=== PATIENT | male | born 1995 | race African-American/Black ===

== ENCOUNTER 2016-05-02 10:36 | Emergency (ER) | payer SELFPAY ==
--- NOTE | 2016-05-02 10:55 | ER Document Report ---
ED Medical Screen (RME) - General Chief Complaint: Testicular Swelling Stated Complaint: TESTICLE SWELLING Time seen by provider: 10:53 Mode of Arrival: Ambulatory Information source: Patient Notes: 21 yo male presents to ed for left testicle swelling for 3 days TRAVEL OUTSIDE OF THE [place] IN LAST 30 DAYS: No - HPI Onset: Other - 3days Onset/Duration: Gradual Quality of pain: Sharp Severity: Moderate Pain Level: 3 Associated Symptoms: Other - left testicle Exacerbated by: Denies Relieved by: Denies Similar symptoms previously: Yes Recently seen / treated by doctor: No - Related Data Smoking: Cigarettes, Other - ppd Frequency of alcohol use: None Drug Abuse: None Allergies/Adverse Reactions: No Known Allergies Allergy (Verified 10/06/15 16:29) Past Medical History - Immunizations Immunizations up to date: Yes Hx Diphtheria, Pertussis, Tetanus Vaccination: No Physical Exam - Vital signs Vitals: Temp Pulse Resp BP Pulse Ox 98.0 F 78 16 147/70 H 100 05/02/16 10:46 05/02/16 10:46 05/02/16 10:46 05/02/16 10:46 05/02/16 10:46 Course - Vital Signs Vital signs: Temp Pulse Resp BP Pulse Ox 98.0 F 78 16 147/70 H 100 05/02/16 10:46 05/02/16 10:46 05/02/16 10:46 05/02/16 10:46 05/02/16 10:46
[2016-05-02] MEDS ORDERED: AZITHROMYCIN 250 MG TABLET PO ONE (11:10)
[2016-05-02] MEDS ORDERED: LIDOCAINE 1% INJ-PF (10 MG/ML) 30 ML SDV INFIL ONE (11:11)
[2016-05-02] MEDS ORDERED: CEFTRIAXONE INJ 250 MG VIAL IM ONE (11:11)
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
[2016-05-02 12:50] LABS: APPEARANCE,URINE TURBID; BILIRUBIN,URINE NEGATIVE (NEGATIVE); GLUCOSE, URINE 50 mg/dL (NEGATIVE); KETONES,URINE NEGATIVE (NEGATIVE); LEUKOCYTE ESTERASE,URINE TRACE (NEGATIVE); NITRITE,URINE NEGATIVE (NEGATIVE); PROTEIN,URINE NEGATIVE (NEGATIVE); UROBILINOGEN,URINE NEGATIVE mg/dL (<2.0)
[2016-05-02 13:19] VITALS: BP 137/79
[2016-05-02 14:15] LABS: CHLAM PCR NOT DETECTED (NOT DETECT)
== END 2016-05-02 13:18 | disposition home or self-care (01) ==
LOC: ER 10:36
DX: N50.89 Other specified disorders of the male genital organs (principal); F17.200 Nicotine dependence, unspecified, uncomplicated
CPT/HCPCS: 99284; 96372; 81001; 87491; 87591; 76870; J3490; J0696

== ENCOUNTER 2018-11-28 19:36 | Emergency (ER) | payer SELFPAY ==
[2018-11-28 19:45] VITALS: BP 129/66
[2018-11-28] MEDS ORDERED: IBUPROFEN 800 MG TABLET PO ONE (19:48)
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
--- NOTE | 2018-11-28 20:31 | RADIOLOGY REPORT (SQ) ---
EXAM DESCRIPTION: Right hand [facility]Lex: XR HAND 3 OR MORE VIEWS Views: 3 CLINICAL HISTORY: 23 years Male, Right hand pain s/p injury COMPARISON: None. FINDINGS: There is acute fracture of the lateral dorsal corner of the hamate, with partial dorsal subluxation of the proximal head of the 5th metacarpal. No additional fractures. No hyperdense foreign bodies. IMPRESSION: 1. Acute hamate fracture with partial dislocation of the proximal head of the 5th metacarpal
[2018-11-28] MEDS ORDERED: HYDROMORPHONE HCL INJ/PF 2 MG/ML AMPULE ONE (20:54)
== END 2018-11-28 20:52 | disposition home or self-care (01) ==
LOC: ER 19:36
PROC: 2W3CX1Z Immobilization of Right Lower Arm using Splint (ICD-10-PCS; principal; 2018-11-28)
DX: S62.396A Other fracture of fifth metacarpal bone, right hand, initial encounter for closed fracture (principal); M79.641 Pain in right hand; W18.09XA Striking against other object with subsequent fall, initial encounter; F17.200 Nicotine dependence, unspecified, uncomplicated
CPT/HCPCS: 99283

== ENCOUNTER 2018-12-02 19:37 | Emergency (ER) | payer SELFPAY ==
[2018-12-02 19:48] VITALS: BP 161/93
--- NOTE | 2018-12-02 20:30 | ER Document Report ---
HPI - HPI Time Seen by Provider: 12/02/18 20:21 Pain Level: 4 Notes: Patient is a 23-year-old male who presents requesting another splint for hamate fracture with partial dislocation of the proximal head of the fifth metacarpal to his right hand 4 days ago. Patient was evaluated by myself at that time and we placed him in a volar splint. Patient states that the splint got wet and he has been working since then. He has not called orthopedics. Patient is also requesting some more medicine for his pain. Denies drug allergies. No other concerns or complaints. No new injury. Denies any headache, fever, URI, sore throat, chest pain, palpitations, syncope, cough, shortness of breath, wheeze, dyspnea, abdominal pain, nausea/vomiting/diarrhea, urinary retention, dysuria, hematuria, numbness/tingling, or rash. - ROS Systems Reviewed and Negative: Yes All other systems reviewed and negative Past Medical History - Social History Smoking Status: Unknown if Ever Smoked Family History: Reviewed & Not Pertinent Renal/ Medical History: Denies: Hx Peritoneal Dialysis - Immunizations Immunizations up to date: Yes Hx Diphtheria, Pertussis, Tetanus Vaccination: No Vertical Provider Document - CONSTITUTIONAL Agree With Documented VS: Yes Notes: PHYSICAL EXAMINATION: GENERAL: Well-appearing, well-nourished and in no acute distress. HEAD: Atraumatic, normocephalic. NECK: Normal range of motion, supple without lymphadenopathy. No midline tenderness. LUNGS: Breath sounds clear to auscultation bilaterally and equal. No wheezes rales or rhonchi. HEART: Regular rate and rhythm without murmurs, rubs, gallops. Musculoskeletal: Rt hand/wrist: There is swelling remaining to the posterior medial hand near the fifth metacarpal proximally. No erythema, warmth, ecchymosis. N/V intact distal. FROM to passive/active at the wrist. 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 No scaphoid tenderness. Continued bony tenderness to palpation of the proximal fifth metacarpal area. Extremities: No cyanosis, clubbing, or edema b/l. Peripheral pulses 2+. Capillary refill less than 3 seconds. NEUROLOGICAL: Normal speech, normal gait. Normal sensory, motor exams otherwise unremarkable PSYCH: Normal mood, normal affect. SKIN: see above. No rash - INFECTION CONTROL TRAVEL OUTSIDE OF THE [place] IN LAST 30 DAYS: No Course - Re-evaluation Re-evalutation: 12/02/18 20:27 Patient is an afebrile, well-hydrated, 23-year-old male who presents with continued hamate fracture and partial dislocation of the proximal head of the fifth metacarpal of the right hand from an injury that occurred 4 days ago. Vitals are acceptable without significant tachycardia, tachypnea, or hypoxia. PE is otherwise unremarkable. Patient has not called orthopedics. Reviewed with patient that he needs to call orthopedics tomorrow as it is very important as he can lose function in that hand over time. New volar splint placed today. I will send him home with one last prescription for pain medicine. Reviewed with patient that I will not be giving him any other prescriptions for pain and he needs to be seen by the specialist. Patient is otherwise nontoxic-appearing and is tolerating p.o. without difficulty. No further work-up warranted. Patient to call orthopedics tomorrow to schedule an appointment for further evaluation and management. Return to the ED with any other worsening/concerning symptoms. Patient is in agreement. - Vital Signs Vital signs: Temp Pulse Resp BP Pulse Ox 98.9 F 73 14 161/93 H 99 12/02/18 19:47 12/02/18 19:47 12/02/18 19:47 12/02/18 19:47 12/02/18 19:47 Procedures - Immobilization Right Hand Pre-Proc Neuro Vasc Exam: Normal Immobilizer type: Volar splint Performed by: PCT Post-Proc Neuro Vasc Exam: Normal, Unchanged from pre-exam Discharge - Discharge Clinical Impression: Fracture of fifth metacarpal bone of right hand Qualifiers: Encounter type: subsequent encounter Fracture type: closed Metacarpal location: base Fracture alignment: displaced Fracture healing: with routine healing Qualified Code(s): S62.316D - Displaced fracture of base of fifth metacarpal bone, right hand, subsequent encounter for fracture with routine healing Fracture of hamate of right wrist Qualifiers: Encounter type: initial encounter Hamate bone location: unspecified portion of hamate Fracture type: closed Fracture alignment: nondisplaced Qualified Code(s): S62.144A - Nondisplaced fracture of body of hamate [unciform] bone, right wrist, initial encounter for closed fracture Condition: Stable Disposition: HOME, SELF-CARE Additional Instructions: Rest, Ice, Compression, Elevation Use splint as directed Tylenol/ibuprofen as needed F/u with your PCP in 3-5 days for a recheck Call orthopedics tomorrow to schedule an appointment for further evaluation and management Return to the ED with any worsening symptoms and/or development of fever, headache, chest pain, palpitations, syncope, shortness of breath, trouble breathing, abdominal pain, n/v/d, muscle weakness/paralysis, numbness/tingling, swelling, redness, or other worsening symptoms that are concerning to you. Prescriptions: Tramadol HCl [Ultram 50 mg Tablet] 50 mg PO Q4HP PRN #12 tab PRN Reason: Forms: Elevated Blood Pressure Referrals: AVTAR CARRERA DO [ACTIVE STAFF] - Follow up in 3-5 days
== END 2018-12-02 20:47 | disposition home or self-care (01) ==
LOC: ER 19:37
DX: S62.316D Displaced fracture of base of fifth metacarpal bone, right hand, subsequent encounter for fracture with routine healing (principal); S62.144D Nondisplaced fracture of body of hamate [unciform] bone, right wrist, subsequent encounter for fracture with routine healing; X58.XXXD Exposure to other specified factors, subsequent encounter

== ENCOUNTER 2019-05-08 13:01 | Emergency (ER) | payer SELFPAY ==
[2019-05-08] MEDS ORDERED: ONDANSETRON HCL INJ/PF 4 MG/2 ML SDV IV ONE (13:15)
[2019-05-08] MEDS ORDERED: NORMAL SALINE 1000 ML 1,000 ML IV ONE ×2 (13:15→15:44)
--- NOTE | 2019-05-08 13:16 | ER Document Report ---
ED Medical Screen (RME) - General Chief Complaint: Vomiting Stated Complaint: VOMITING/STOMACHE CRAMPS Time Seen by Provider: 05/08/19 13:12 Mode of Arrival: Ambulatory Information source: Patient Notes: Otherwise healthy 24-year-old male presents emergency department chief complaint of nausea, vomiting and diarrhea that began yesterday. Patient also reports body aches and chills. Unsure if he is having any fevers. He denies any sick contacts at home but reports some people at work have had similar symptoms. Denies any abdominal pain but reports intermittent abdominal cramping. Exam: Patient appears well, nontoxic, no acute distress noted. Abdomen soft nontender. I have greeted and performed a rapid initial assessment of this patient. A comprehensive ED assessment and evaluation of the patient, analysis of test results and completion of the medical decision making process will be conducted by additional ED providers. I have specifically instructed the patient or family members with the patient to immediately return to any nursing staff should anything change in the patient's condition or with their chief complaint. TRAVEL OUTSIDE OF THE [place] IN LAST 30 DAYS: No - Related Data Allergies/Adverse Reactions: No Known Allergies Allergy (Verified 05/08/19 13:11) Past Medical History Renal/ Medical History: Denies: Hx Peritoneal Dialysis - Immunizations Immunizations up to date: Yes Hx Diphtheria, Pertussis, Tetanus Vaccination: No
[2019-05-08] MEDS ORDERED: DICYCLOMINE HCL INJ 20 MG/2 ML AMPULE IM ONE (14:03)
[2019-05-08 14:06] LABS: ABSOLUTE LYMPHOCYTES (AUTO) 0.9 10^3/uL (0.5-4.7); ABSOLUTE MONOCYTES (AUTO) 0.8 10^3/uL (0.1-1.4); ABSOLUTE NEUT (AUTO) 5.7 10^3/uL (1.7-8.2); BASOPHILS % (AUTO) 0.4 % (0-2); EOSINOPHILS % (AUTO) 0.5 % (0-6); HEMATOCRIT 45.8 % (37.9-51.0); HEMOGLOBIN 16.2 g/dL (13.5-17.0); LYMPHOCYTES % (AUTO) 11.8 % (13-45); MEAN CORPUSCULAR HEMOGLOBIN 30.5 pg (27.0-33.4); MEAN CORPUSCULAR HGB CONC 35.5 g/dL (32.0-36.0); MEAN CORPUSCULAR VOLUME 86 fl (80-97); MONOCYTES % (AUTO) 11.1 % (3-13); PLATELET COUNT 213 10^3/uL (150-450); RED BLOOD COUNT 5.33 10^6/uL (4.35-5.55); RED CELL DISTRIBUTION WIDTH 14.5 % (11.5-14.0); SEGMENTED NEUTROPHILS % (AUTO) 76.2 % (42-78); TOTAL CELLS COUNTED % (AUTO) 100 %; WHITE BLOOD COUNT 7.4 10^3/uL (4.0-10.5)
[2019-05-08 14:21] LABS: ALBUMIN 4.7 g/dL (3.5-5.0); ALKALINE PHOSPHATASE 98 U/L (38-126); ANION GAP 13 (5-19); ASPARTATE AMINO TRANSFERASE 23 U/L (17-59); BILIRUBIN,DIRECT 0.3 mg/dL (0.0-0.4); BILIRUBIN,TOTAL 0.5 mg/dL (0.2-1.3); BLOOD UREA NITROGEN 11 mg/dL (7-20); CALCIUM 9.6 mg/dL (8.4-10.2); CARBON DIOXIDE 25 mmol/L (22-30); CHLORIDE 102 mmol/L (98-107); GLUCOSE 99 mg/dL (75-110); POTASSIUM 3.8 mmol/L (3.6-5.0); TOTAL PROTEIN 7.9 g/dL (6.3-8.2)
--- NOTE | 2019-05-08 14:22 | ER Document Report ---
ED General - General Chief Complaint: Nausea/Vomiting/Diarrhea Stated Complaint: VOMITING/STOMACHE CRAMPS Time Seen by Provider: 05/08/19 13:12 Primary Care Provider: [facility] ([place], [place]) [Provider Group] - Follow up in 3-5 days Mode of Arrival: Ambulatory Notes: 24-year-old male presents with nausea, vomiting, diarrhea that started yesterday. Patient has abdominal cramping whenever he vomits. Associated body aches and chills. Patient denies any abdominal pain, fever, urinary symptoms. Patient reports coworkers with similar symptoms. TRAVEL OUTSIDE OF THE [place] IN LAST 30 DAYS: No - Related Data Allergies/Adverse Reactions: No Known Allergies Allergy (Verified 05/08/19 13:11) Past Medical History - General Information source: Patient - Social History Smoking Status: Current Every Day Smoker Frequency of alcohol use: None Drug Abuse: None Family History: Reviewed & Not Pertinent Patient has suicidal ideation: No Patient has homicidal ideation: No Renal/ Medical History: Denies: Hx Peritoneal Dialysis - Immunizations Immunizations up to date: Yes Hx Diphtheria, Pertussis, Tetanus Vaccination: No Review of Systems - Review of Systems Notes: Constitutional: Negative for fever. HENT: Negative for sore throat. Eyes: Negative for visual changes. Cardiovascular: Negative for chest pain. Respiratory: Negative for shortness of breath. Gastrointestinal: Positive for abdominal pain, vomiting or diarrhea. Genitourinary: Negative for dysuria. Musculoskeletal: Negative for back pain. Skin: Negative for rash. Neurological: Negative for headaches, weakness or numbness. 10 point ROS negative except as marked above and in HPI. Physical Exam - Vital signs Vitals: Temp Pulse BP Pulse Ox 98.2 F 72 145/74 H 99 05/08/19 13:12 05/08/19 13:12 05/08/19 13:12 05/08/19 13:12 - Notes Notes: GENERAL: Well-appearing, well-nourished and in no acute distress. HEAD: Atraumatic, normocephalic. EYES: Extraocular movements intact, sclera anicteric, conjunctiva are normal. NECK: Normal range of motion, supple without lymphadenopathy or JVD. LUNGS: Breath sounds clear to auscultation bilaterally and equal. No wheezes rales or rhonchi. HEART: Regular rate and rhythm without murmurs, rubs or gallops. ABDOMEN: Soft, nontender. No guarding, no rebound. No masses appreciated. EXTREMITIES: Normal range of motion, no pitting or edema. No clubbing or cyanosis. NEUROLOGICAL: Cranial nerves II through XII grossly intact. Normal speech, normal gait. PSYCH: Normal mood, normal affect. SKIN: Warm, Dry, normal turgor, no rashes or lesions noted. Course - Re-evaluation Re-evalutation: 05/08/19 24-year-old well-appearing, nontoxic male presents with nausea/vomiting/diarrhea that started yesterday with abdominal cramping states. Patient has associated body aches and chills. Patient is afebrile. Patient has sick contacts with similar symptoms at work. Abdomen soft nontender. PE is otherwise unremarkable. Work-up initiated. CBC and CMP WNL. 05/08/19 14:58 Flu neg 05/08/19 15:56 PO tolerant. 05/08/19 16:06 Discussed all results with pt. Pt encouraged to increase fluid intake. Prescriptions for Bentyl and Zofran given. Pt requesting work note allowing him to return tomorrow. Strict return precautions given. Close follow up with PCP. Pt voices understanding and agrees with plan of care. - Vital Signs Vital signs: Temp Pulse Resp BP Pulse Ox 98.2 F 72 145/74 H 99 05/08/19 13:12 05/08/19 13:12 05/08/19 13:12 05/08/19 13:12 - Laboratory Result Diagrams: 05/08/19 13:34 05/08/19 13:34 Laboratory results interpreted by me: 05/08/19 13:34 RDW 14.5 H Lymph % (Auto) 11.8 L Discharge - Discharge Clinical Impression: Abdominal cramping, Nausea, vomiting, and diarrhea Condition: Stable Disposition: HOME, SELF-CARE Instructions: Antinausea Medication ([facility]), Intravenous (IV) Fluids ([facility]) Additional Instructions: Your lab work was normal. Your flu test was negative. Please take medications as prescribed. Please make sure to drink plenty of water. Please follow-up with your primary care doctor or clinic listed in 3 to 5 days. Return to ER for any worsening symptoms, including fever, worsening abdominal pain, vomiting not controlled by medication, worsening diarrhea, blood in vomit or stool, chest pain, shortness of breath, or any other symptoms that are concerning to you. Prescriptions: Ondansetron [Zofran Odt 4 mg Tablet] 4 mg PO Q4HP PRN #30 tab.rapdis PRN Reason: Dicyclomine HCl [Bentyl 20 mg Tablet] 20 mg PO QID #40 tablet Forms: Return to Work Referrals: [facility] ([place], [place]) [Provider Group] - Follow up in 3-5 days
[2019-05-08 14:40] LABS: A TYPE INFLUENZA AG NEGATIVE (NEGATIVE); B INFLUENZA AG NEGATIVE (NEGATIVE)
--- NOTE | 2019-05-08 14:56 | ER Document Report ---
ED General - General Chief Complaint: Nausea/Vomiting/Diarrhea Stated Complaint: VOMITING/STOMACHE CRAMPS Time Seen by Provider: 05/08/19 13:12 Mode of Arrival: Ambulatory Notes: 24-year-old male presents with nausea/vomiting/diarrhea that started yesterday with intermittent abdominal cramping and associated body aches/chills. Patient states he has abdominal cramping whenever he has to vomit. Patient denies any fever, urinary symptoms, chest pain, shortness of breath. Patient states coworkers have similar symptoms. TRAVEL OUTSIDE OF THE [place] IN LAST 30 DAYS: No - Related Data Allergies/Adverse Reactions: No Known Allergies Allergy (Verified 05/08/19 13:11) Past Medical History - General Information source: Patient - Social History Smoking Status: Current Every Day Smoker Frequency of alcohol use: None Drug Abuse: None Family History: Reviewed & Not Pertinent Patient has suicidal ideation: No Patient has homicidal ideation: No Renal/ Medical History: Denies: Hx Peritoneal Dialysis - Immunizations Immunizations up to date: Yes Hx Diphtheria, Pertussis, Tetanus Vaccination: No Review of Systems - Review of Systems Notes: Constitutional: Negative for fever. HENT: Negative for sore throat. Eyes: Negative for visual changes. Cardiovascular: Negative for chest pain. Respiratory: Negative for shortness of breath. Gastrointestinal: Positive for abdominal pain, vomiting and diarrhea. Genitourinary: Negative for dysuria. Musculoskeletal: Negative for back pain. Skin: Negative for rash. Neurological: Negative for headaches, weakness or numbness. 10 point ROS negative except as marked above and in HPI. Physical Exam - Vital signs Vitals: Temp Pulse BP Pulse Ox 98.2 F 72 145/74 H 99 05/08/19 13:12 05/08/19 13:12 05/08/19 13:12 05/08/19 13:12 Course - Vital Signs Vital signs: Temp Pulse Resp BP Pulse Ox 98.2 F 72 145/74 H 99 05/08/19 13:12 05/08/19 13:12 05/08/19 13:12 05/08/19 13:12 - Laboratory Result Diagrams: 05/08/19 13:34 05/08/19 13:34 Laboratory results interpreted by me: 05/08/19 13:34 RDW 14.5 H Lymph % (Auto) 11.8 L
[2019-05-08 16:22] VITALS: BP 120/65
== END 2019-05-08 16:20 | disposition home or self-care (01) ==
LOC: ER 13:01
DX: R10.9 Unspecified abdominal pain (principal); R11.2 Nausea with vomiting, unspecified; R19.7 Diarrhea, unspecified; M79.10 Myalgia, unspecified site; F17.200 Nicotine dependence, unspecified, uncomplicated
CPT/HCPCS: 99284; 96372; 96361; 96374; 36415; 83690; 85025; 80053; 87804; J0500; J2405; J7030